=== PATIENT | male | born 1950 | race Caucasian/White ===

== ENCOUNTER → 2020-12-01 09:25 | Outpatient (BNVA) | payer MEDICARE, SELFPAY | PROVIDERS: PCP Internal Medicine; Visit Provider Urology | DX: N40.1 Benign prostatic hyperplasia with lower urinary tract symptoms (principal); N13.8 Other obstructive and reflux uropathy; R35.1 Nocturia; R39.12 Poor urinary stream | CPT/HCPCS: Q3014 ==

== ENCOUNTER → 2021-12-17 09:01 | Outpatient (BNVA) | payer MEDICARE, SELFPAY | PROVIDERS: PCP Internal Medicine; Visit Provider Urology | DX: N40.1 Benign prostatic hyperplasia with lower urinary tract symptoms (principal); N13.8 Other obstructive and reflux uropathy; R39.12 Poor urinary stream; R35.1 Nocturia; N39.0 Urinary tract infection, site not specified | CPT/HCPCS: Q3014 ==

== ENCOUNTER 2022-05-27 10:49 | Day surgery (SDC) | payer MEDICARE, SELFPAY ==
[2022-05-23 15:34] VITALS: BMI 39.1
--- NOTE | 2022-05-26 14:00 | HO.ANESPROP2 ---
Documented by User: Morelia Colin NP 05/26/22 14:01 HPI - Anesthesia Eval Consult details Narrative: 72yo M for Colonoscopy PMFSH Active Problems Active Problems: All Active Problems (Updated 05/23/22 @ 15:31 by Lily Bojorquez RN) BPH w urinary obs/LUTS (Acute) Nocturia more than twice per night (Acute) Weak urinary stream (Acute) Recurrent UTI (urinary tract infection) (Acute) Past Medical History Medical History Benign prostatic hyperplasia with lower urinary tract symptoms Diabetes mellitus, type II Elevated cholesterol Enterococcus as the cause of diseases classified elsewhere Hematuria Incomplete emptying of bladder Sleep apnea UTI (urinary tract infection) Surgical History Surgical History H/O colonoscopy History of surgery Social History Social History (Updated 05/23/22 @ 15:32 by Lily Bojorquez RN) Household Members: Spouse Patient Tobacco Use Status: Current everyday Tobacco user Tobacco use type: Cigar Cigarettes Per Day: 1 Use of substances other than those prescribed or required for medical reasons: No Are you DNR?: No Advance Directives: No Advance Directives Information Provided: Yes Meds Allergies Allergy/AdvReac Type Severity Reaction Status Date / Time No Known Allergies Allergy Verified 12/17/21 09:02 [No Known Allergies*] Home Medications Medication Instructions Recorded Confirmed Last Taken Type glipizide 10 mg tablet 10 mg PO BID 12/01/20 05/23/22 Unknown History metformin 500 mg tablet,extended 1,000 mg PO BID 12/01/20 05/23/22 Unknown History release 24 hr tamsulosin 0.4 mg capsule 0.4 mg PO DAILY 12/01/20 05/23/22 Unknown History blood sugar diagnostic (OneTouch #10 ea 12/17/21 Unknown History Ultra Test) dulaglutide 0.75 mg/0.5 mL 0.75 mg subcut QWEEK 12/17/21 05/23/22 Unknown History subcutaneous pen injector (Trulicity) atorvastatin 20 mg tablet 1 tab PO DAILY 05/27/22 05/27/22 Unknown History Exam Exam Date and Time: May 26, 2022 1400 Height,Weight and Vital Signs: Height 5 ft 9 in Weight 120.202 kg Assessment and Plan Assessment Anesthesia Assessment: Chart Reviewed Documented by User: Aldair Dodson MD 05/27/22 12:29 PMFSH Past Medical History Medical History Benign prostatic hyperplasia with lower urinary tract symptoms Diabetes mellitus, type II Elevated cholesterol Enterococcus as the cause of diseases classified elsewhere Hematuria Incomplete emptying of bladder Sleep apnea UTI (urinary tract infection) Family History Family history of problems with anesthesia: No Surgical History Surgical History H/O colonoscopy History of surgery History of Problems with Anesthesia: No Social History Social History (Updated 05/23/22 @ 15:32 by Lily Bojorquez RN) Household Members: Spouse Patient Tobacco Use Status: Current everyday Tobacco user Tobacco use type: Cigar Cigarettes Per Day: 1 Use of substances other than those prescribed or required for medical reasons: No Are you DNR?: No Advance Directives: No Advance Directives Information Provided: Yes Meds Allergies Allergy/AdvReac Type Severity Reaction Status Date / Time No Known Allergies Allergy Verified 12/17/21 09:02 [No Known Allergies*] Home Medications Medication Instructions Recorded Confirmed Last Taken Type glipizide 10 mg tablet 10 mg PO BID 12/01/20 05/23/22 Unknown History metformin 500 mg tablet,extended 1,000 mg PO BID 12/01/20 05/23/22 Unknown History release 24 hr tamsulosin 0.4 mg capsule 0.4 mg PO DAILY 12/01/20 05/23/22 Unknown History blood sugar diagnostic (OneTouch #10 ea 12/17/21 Unknown History Ultra Test) dulaglutide 0.75 mg/0.5 mL 0.75 mg subcut QWEEK 12/17/21 05/23/22 Unknown History subcutaneous pen injector (Trulicity) atorvastatin 20 mg tablet 1 tab PO DAILY 05/27/22 05/27/22 Unknown History Exam Airway Mallampati Class: IV TM Dist: >3cm Neck ROM: Full Loose/Missing/Broken Teeth: No Heart: rrr Lungs: lear Assessment and Plan Final Anesthetic Review Family History of Problems with Anesthesia: No History of Problems with Anesthesia: No NPO: Yes ASA Class: II Final Preanesthetic Review: No Changes in Pt Med Stat, Meds/Allgs Chart Reviewed, Consent Obtained/Reviewed and Anes Risks/Benef Reviewed Patient Risk: Intermediate Procedure Risk: Low Anesthetic Plan Anesthetic Plan: MAC: Disposition: Standard PACU
[2022-05-27 11:43] VITALS: BP 110/55; PULSE 65; RESP 17; TEMP 36.9; O2SAT 97; BMI 37.0
[2022-05-27] MEDS: Lactated Ringers 1,000 ML 100 ML IVCONT (12:07)
[2022-05-27 12:14] LABS: Glucose, Whole Blood 143 mg/dL (60-115)
[2022-05-27 13:30] VITALS: BP 94/40; PULSE 65; RESP 20; TEMP 36.1; O2SAT 96
--- NOTE | 2022-05-27 13:30 | P.BOP_ITS ---
Brief Operative Note Date of Service: 05/27/22 Pre-op diagnosis: Screening Post-op diagnosis: other (Colon polyp, Diverticulosis) Procedure: Colonoscopy to the cecum and TI with hot snare polypectomy and placement of 2 Resolution clips Surgeon: Joaquín Lama Anesthesia: MAC Was an Turning Machine Set Up Operator used for this Procedure?: No Estimated blood loss (mL): 2.0 Pathology: other (A. Ascending colon polyp) Condition: stable Disposition: PACU
[2022-05-27 13:45] VITALS: BP 105/55; PULSE 56; RESP 18; TEMP 36.8; O2SAT 97
--- NOTE | 2022-06-06 16:29 | OP_ITS ---
SURGEON: Joaquín Lama MD INDICATIONS: Full consent obtained from him for this, including risks of bleeding and perforation. PREOPERATIVE DIAGNOSIS: POSTOPERATIVE DIAGNOSIS: PROCEDURE PERFORMED: ESTIMATED BLOOD LOSS: COMPLICATIONS: ANESTHESIA: Monitored anesthesia care. ASSISTANTS: SPECIMENS: PROCEDURES: Colonoscopy to cecum and terminal ileum with hot snare polypectomy and placement of 2 resolution clips. PREOPERATIVE DIAGNOSES: Colorectal cancer screening and personal history of tubular adenoma of the colon. POSTOPERATIVE DIAGNOSES: Colorectal cancer screening and personal history of tubular adenoma of the colon. Colon polyp, diverticulosis and internal hemorrhoids. DESCRIPTION OF PROCEDURE: The patient was placed in the left lateral decubitus position. The digital rectal exam revealed no abnormalities. The Olympus video pediatric colonoscope was entered into the rectum and advanced easily to the cecum. Once in the cecum, I did identify normal-appearing cecal pouch with appendiceal orifice and a normal-appearing ileocecal valve. The terminal ileum was cannulated and appeared normal. The scope was withdrawn back in the colon. The entire cecum and ileocecal valve appeared normal. The scope was slowly withdrawn assessing all mucosal surfaces carefully. Preparation was excellent. In the proximal ascending colon, was an approximately 10 mm polyp on a fold, which was removed by hot snare polypectomy and recovered by suction. The polypectomy site appeared clean, without any sign of residual polyp. There was some oozing, which was controlled with cauterization with the tip of the snare and then subsequent placement of 2 resolution clips. The clips were deployed well and with good hemostasis. The area was observed and irrigated without any further signs of active bleeding. I did not visualize any other polyps, colitis, nor angiodysplasia. There was a moderate amount of diverticulosis in the descending and sigmoid colon. In the rectum, scope was retroflexed visualizing internal hemorrhoids, but no other pathology. The scope was straightened. Of note, there were lipomas noted in the ascending colon and sigmoid colon, which were quite characteristic of lipomas with normal overlying mucosa and quite soft when probed with the biopsy forceps. The scope was withdrawn from the patient. He tolerated the procedure well and was returned to recovery area in stable condition. IMPRESSION: 1. Colon polyp. 2. Lipomas. 3. Diverticulosis. 4. Internal hemorrhoids. PLAN: The results of the pathology will be checked. He was advised not to use any aspirin and NSAIDs for least 1 week. I would recommend a repeat colonoscopy in 5 years for further screening. MD BARNEY Jefferson/CORI / [id number]
== END 2022-05-27 14:25 | disposition home or self-care (01) ==
PROVIDERS: PCP Physician Assistant Medical; Visit Provider Internal Medicine
PROC: 0DJD8ZZ Inspection of Lower Intestinal Tract, Via Natural or Artificial Opening Endoscopic (ICD-10-PCS; CPT 45378; principal; 2022-05-27 12:10)
DX: Z12.11 Encounter for screening for malignant neoplasm of colon (principal); Z86.010 Personal history of colon polyps; D12.2 Benign neoplasm of ascending colon; K57.30 Diverticulosis of large intestine without perforation or abscess without bleeding; E78.5 Hyperlipidemia, unspecified; G47.33 Obstructive sleep apnea (adult) (pediatric); E11.9 Type 2 diabetes mellitus without complications; Z79.84 Long term (current) use of oral hypoglycemic drugs; Z79.899 Other long term (current) drug therapy; F17.210 Nicotine dependence, cigarettes, uncomplicated
CPT/HCPCS: 45385; 82947; 88305

== ENCOUNTER → 2022-12-16 11:31 | Outpatient (BNVA) | payer MEDICARE, SELFPAY | PROVIDERS: PCP Physician Assistant Medical; Visit Provider Urology | DX: N40.1 Benign prostatic hyperplasia with lower urinary tract symptoms (principal); N13.8 Other obstructive and reflux uropathy; R35.1 Nocturia; R39.12 Poor urinary stream | CPT/HCPCS: 51798; 99212 ==

== ENCOUNTER 2023-12-20 10:31 | Outpatient (AMB) | payer MEDICARE, SELFPAY ==
--- NOTE | 2023-12-20 10:41 | A.OFFVIS_ITS ---
Intake Intake Visit Reasons: 1Y PVR Intake Note: Patient is Present for Follow Up PVR Urology Medication: Tamsulosin Antibiotic Allergies: None Blood Thinners: None PVR: 26 Allergies No Known Allergies [No Known Allergies*] Allergy (Verified 12/17/21 09:02) HPI HPI Comments History of Present Illness Details Matthew is a pleasant male. They are a patient of Dr. Corona. He is seen for the following urologic conditions - lower urinary tract symptoms Effective emptying maintained - current PVR 25 cc Background diabetes Previous offer prostate procedure Would like to stay with medications Is considering procedure Background diabetes with CPAP Lower Urinary Tract Symptoms: Current visit is for further evaluation of, lower urinary tract symptoms, predominate obstructive symptoms. Current treatment includes medication, alpha adam - prior therapy finasteride Prostate Symptom Score 6 , Moderate (9-19), Bother 3 06/14 , Mild (0-8), Bother 2. Symptoms include incomplete emptying, urgency, weak stream, and are progressing 06/14 , incomplete emptying, weak stream, and are improving. Results from testing include renal/bladder us Yes date 05/01/2019 PVR 25 prostate size 25 - cystoscopy 11/2019 - tight bladder neck PSA 12/18 0.1 Associated conditions CAD No CVA No diabetes Yes elevated PSA No erectile dysfunction Yes urinary tract infection Yes Early 2018 recurring UTI with background of diabetes Testing at next visit will include bladder scan. Treatment plan continue with current medications. [facility] Medical History Elevated cholesterol Sleep apnea Diabetes mellitus, type II Hematuria Benign prostatic hyperplasia with lower urinary tract symptoms Incomplete emptying of bladder Enterococcus as the cause of diseases classified elsewhere UTI (urinary tract infection) Surgical History H/O colonoscopy History of surgery Social History Household Members: Spouse Patient Tobacco Use Status: Current everyday Tobacco user Tobacco use type: Cigar Cigarettes Per Day: 1 Review of Systems Const Denies chills and Denies fever(s) Card Reports no additional complaints and Denies syncope Resp Denies cough GI Denies abdominal pain and Denies heartburn Reports as per HPI and Denies change in libido Neuro Denies syncope Psych Denies change in libido Endo Denies change in libido Physical Exam Const General: cooperative, healthy appearing, comfortable and no acute distress Orientation/consciousness: patient oriented x3 HEENT Face and sinus: Yes normal facial exam Mouth: moist mucous membranes Neck Neck: Yes normal visual inspection, Yes full ROM and Yes trachea midline Chest Chest palpation & inspection: normal inspection of the chest Resp Effort & Inspection: normal respiratory effort, able to speak in complete sentences and no respiratory distress GI Inspection: Yes normal to inspection Back/Spine/Pelvis Cervical Spine: normal cervical lordosis Thoracic/Lumbar Spine: thoracic and lumbar spine normal to inspection Skin General skin exam: no rashes or lesions noted Neuro General: patient oriented x3, gait normal, tone normal and moves all extremities Extrem General: Yes normal to inspection and Yes capillary refill normal Office Procedures Post Void Residual Post Residual Void Post Void Residual (PVR): 26 [id number] Void Residual by ultrasound Assessment & Plan Assessment & Plan (1) BPH w urinary obs/LUTS: Code(s): N40.1 - Benign prostatic hyperplasia with lower urinary tract symptoms; N13.8 - Other obstructive and reflux uropathy (2) Nocturia more than twice per night: Code(s): R35.1 - Nocturia Plan Twelve month follow-up PVR Orders: Orders AMB Post Void Residual by ultrasound Today N13.8 - Other obstructive and reflux uropathy, N40.1 - Benign prostatic hyperplasia with lower urinary tract symptoms Patient Instructions: Imaging studies, laboratory and physical exam results were discussed and reviewed in detail. No major barriers to patient understanding were identified. An opportunity to ask questions regarding the treatment plan was provided. All questions were answered. The patient expressed understanding and agreement with the above treatment plan. The patient is aware they should contact our office by phone for worsening of their current condition or the appearance of new urologic symptoms. Compliance is encouraged with any medications and followup testing that is ordered. It is a privilege to participate in the urologic care of your patient. If you have any questions or concerns regarding treatment for the above conditions, or other urologic issues, please do not hesitate to contact me. The office telephone contact is [phone]. This note is constructed using voice recognition software. While every effort has been made to ensure accuracy furniture sales consultant errors may have been included. Yours sincerely, Dr Jostin Freitas MD, [facility] - Urology Providers of Expert, Compassionate Care for the Genitourinary System Coding Level of Care Code Est Pt Level 4 (77636) Diagnoses BPH w urinary obs/LUTS N40.1; N13.8 Nocturia more than twice per night R35.1 CPT Codes Post Residual Void - PVR CPT Code: 05004-Vbar Void Residual by ultrasound ([id number])
== END 2023-12-20 11:07 | disposition home or self-care (01) ==
PROVIDERS: Visit Provider Urology
DX: N40.1 Benign prostatic hyperplasia with lower urinary tract symptoms (principal); N13.8 Other obstructive and reflux uropathy; R35.1 Nocturia
CPT/HCPCS: 99213

== ENCOUNTER → 2023-12-20 10:31 | Outpatient (BNVA) | payer MEDICARE, SELFPAY | PROVIDERS: Visit Provider Urology | DX: N40.1 Benign prostatic hyperplasia with lower urinary tract symptoms (principal); N13.8 Other obstructive and reflux uropathy; R35.1 Nocturia | CPT/HCPCS: 51798; 99212 ==

== ENCOUNTER → 2024-12-20 10:46 | Outpatient (BNVA) | payer MEDICARE, SELFPAY | PROVIDERS: PCP Physician Assistant Medical; Visit Provider Urology | DX: N40.1 Benign prostatic hyperplasia with lower urinary tract symptoms (principal); N13.8 Other obstructive and reflux uropathy; R35.1 Nocturia | CPT/HCPCS: 51798; 81003; 99212 ==